=== PATIENT | female | born 1985 | race Caucasian/White ===

== ENCOUNTER 2016-03-06 13:29 | Emergency (ER) | payer OTHER ==
[2016-03-06] MEDS ORDERED: HYDROmorphone 1 mg/mL 1mL Syr IM STA (13:51)
[2016-03-06] MEDS ORDERED: HYDROmorphone 1 mg/mL 1mL Syr ONE (13:57)
--- NOTE | 2016-03-06 14:01 | ED Physician Chart ---
Chief Complaint/HPI - Patient Information Date Seen:: 03/06/16 Time Seen:: 13:40 Chief Complaint:: headaches History of Present Illness:: pt presents with intermittent, throbbing, frontal H/As with N/V x2 for the past few hours; pt describes these s/s are her typical chronic s/s of a chronic history of these typical H/As; no A/D/C, fever, chills, C/P, SOB, or Abd> pain; pt is ; pt is eating and urinating well; pt last urinated 1/2 hour GEL COATER; No LOC, decreased activity, visual or gait changes; no neck pain, vertigo, dizziness, or weakness; no paresthesias Allergies:: Allergies Allergy/AdvReac Type Severity Reaction Status Date / Time codeine Allergy Verified 02/26/16 16:12 magnesium citrate Allergy Verified 02/26/16 16:12 metoclopramide Allergy Verified 02/26/16 16:12 ondansetron Allergy Verified 02/26/16 16:12 prochlorperazine Allergy Verified 02/26/16 16:12 sumatriptan Allergy Verified 02/26/16 16:12 Historian:: Patient Review:: Nurse's Note Reviewed, Old Chart Reviewed Review of Systems - Review of Systems General/Constitutional: No fever, No chills, No weight loss, No weakness, No diaphoresis, No edema, No loss of appetite Skin: No skin lesions, No rash, No bruising Head: Headache, No headache, No light-headedness Eyes: No loss of vision, No pain, No diplopia ENT: No earache, No nasal drainage, No sore throat, No tinnitus Neck: No neck pain, No swelling, No thyromegaly, No stiffness, No mass noted Cardio Vascular: No chest pain, No palpitations, No PND, No orthopnea, No edema Pulmonary: No SOB, No cough, No sputum, No wheezing GI: Nausea, No nausea, Vomiting, No vomiting, No diarrhea, No pain, No melena, No hematochezia, No constipation, No hematemesis G/U: No dysuria, No frequency, No hematuria Musculoskeletal: No bone or joint pain, No back pain, No muscle pain Endocrine: No polyuria, No polydipsia Psychiatric: No prior psych history, No depression, No anxiety, No suicidal ideation Hematopoietic: No bruising, No lymphadenopathy Allergic/Immuno: No urticaria, No angioedema Neurological: No syncope, No focal symptoms, No weakness, No paresthesia, No headache, No seizure, No dizziness, No confusion, No vertigo Past Medical History - Past Medical History Past Medical History: Other (Vascular Cephalgia; Migraine Headaches) Family History: HTN Social History: Surgical History: other (Gastric Bypass Surgery) Psychiatricy History: None Family Medical History - Family Member Mother History Unknown: Yes Ethnicity: Living Status: Still Living Hx Family Hypertension: Yes Hx Family Stroke: Yes Hx Family Diabetes: Yes Father History Unknown: Yes Ethnicity: Non- Living Status: Hx Family Cancer: Yes Physical Exam - Physical Examination General/Constitutional: Awake, Well-developed, well-nourished, Alert, No distress, GCS 15, Non-toxic appearing, Ambulatory Head: Atraumatic Eyes: Lids, conjuctiva normal, PERRL, EOMI Skin: Nl inspection, No rash, No skin lesions, No ecchymosis, Well hydrated, No lymphadenopathy ENMT: External ears, nose nl, Nasal exam nl, Lips, teeth, gums nl Neck: Nontender, Full ROM w/o pain, No JVD, No nuchal rigidity, No bruit, No mass, No stridor Respiratory: Nl effort/Exclusion, Clear to Auscultation, No Wheeze/Rhonchi/Rales Cardio Vascular: RRR, No murmur, gallop, rubs, NL S1 S2 GI: No tenderness/rebounding/guarding, No organomegaly, No hernia, Normal BS's, Nondistended, No mass/bruits, No McBurney tenderness : No CVA tenderness Extremities: No tenderness or effusion, Full ROM, normal strength in all extremities, No edema, Normal digits & nails Neuro/Psych: Alert/oriented, DTR's symmetric, Normal sensory exam, Normal motor strength, Judgement/insight normal, Mood normal, Normal gait, No focal deficits Misc: normal gait, Normal back, No paraspinal tenderness ED Septic Shock - . Is Septic Shock (SBP<90, OR Lactate>4 mmol\L) present?: No Reassessment (Disposition) - Reassessment Reassessment Condition:: Improved - Diagnosis Diagnosis:: Vascular Cephalgia; Gastitis; Migraine Headaches; IUP; Vomiting; Hyperemesis Gravidum - Aftercare/Follow up Instructions Aftercare/Follow-Up Instructions:: Counseled pt regarding lab results/diagnosis & need follow up, Refer to Discharge Instructions, Counseled pt & family regarding lab results/diagnosis & need follow up - Patient Disposition Discharge/Transfer:: Home Condition at Disposition:: Stable, Improved (ACIs given for all above Dx; refer to OB-SECURITY PUBLIC SAFETY OFFICER/ GI/Neurologist ABDIEL; F/U with PMD in one day or prn; RTER prn if concerned)
== END 2016-03-06 14:21 | disposition home or self-care (01) ==
LOC: ER 13:29
DX: O21.0 Mild hyperemesis gravidarum (principal); O29.40 Spinal and epidural anesthesia induced headache during pregnancy, unspecified trimester; G43.909 Migraine, unspecified, not intractable, without status migrainosus; K29.70 Gastritis, unspecified, without bleeding; Z3A.00 Weeks of gestation of pregnancy not specified; Z88.6 Allergy status to analgesic agent; Z88.8 Allergy status to other drugs, medicaments and biological substances
CPT/HCPCS: J1170; J1200; Z7502

== ENCOUNTER 2016-03-25 16:42 | Emergency (ER) | payer OTHER ==
[2016-03-25] MEDS ORDERED: Sodium Chloride 0.9% 1,000 ML IV ONE (17:01)
[2016-03-25] MEDS ORDERED: Sodium Chloride 0.45% 1,000 ML IV ONE (17:10)
[2016-03-25 17:28] LABS: % BASOPHILS 0.7 % (0.0-2.0); % LYMPHOCYTES 34.6 % (20.0-50.0); % MONOCYTES 5.9 % (2.0-10.0); % NEUTROPHILS 56.8 % (40.0-80.0); HEMATOCRIT 31.8 % (35.0-45.0); HEMOGLOBIN 10.5 gm/dL (11.7-15.5); MEAN CELL VOLUME 83.7 fl (81-100); MEAN CORPUSCULAR HEMOGLOBIN 27.8 pg (27.0-31.0); MEAN CORPUSCULAR HGB CONC 33.2 pg (28.0-36.0); NEUTROPHILE ABSOLUTE 4.4 Th/cmm (1.8-8.0); PLATELET COUNT 225 Th/cmm (150-400); RED BLOOD COUNT 3.79 Mil/cmm (3.80-5.10); RED CELL DISTRIBUTION WIDTH 13.8 % (11.5-20.0)
--- NOTE | 2016-03-25 17:30 | ED Physician Chart ---
Chief Complaint/HPI - Patient Information Date Seen:: 03/25/16 Time Seen:: 17:14 Chief Complaint:: HEADACHE History of Present Illness:: THIS IS A 30 YO FEMALE WITH A LONG HISTORY OF HEADACHES AND DRUG ABUSE WHO IS 13 WEEKS . SHE IS ALSO UNDER PAIN MANAGEMENT AND CURRENTLY TAKING TYLENOL#3 FOR HER HEADACHES. SHE STATES THAT SHE HAS NAUSEA WITH VOMITING. SHE ALSO DENIES PAINFUL URINATION AND DENIES FEVER. SHE DENIES VAGINAL BLEEDING AT THIS TIME. THE PATIENT'S OLD RECORDS WERE REVIEWED STATING THAT SHE IS ALLERGIC TO CODEINE, HOWEVER SHE IS CURRENT TAKING TYLENOL #3'S. SHE STATES THAT SHE HAS HAD A FULL WORKUP FROM HER NEUROLOGIST WHO DIFFICULT TO REACH. 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 Allergies:: Allergies Allergy/AdvReac Type Severity Reaction Status Date / Time codeine Allergy Verified 02/26/16 16:12 metoclopramide Allergy Verified 02/26/16 16:12 ondansetron Allergy Verified 02/26/16 16:12 prochlorperazine Allergy Verified 02/26/16 16:12 sumatriptan Allergy Verified 02/26/16 16:12 GLUCOSE TOLERANCE TEST MEDIUM Allergy Uncoded 03/06/16 13:59 Vitals:: Vital Signs - 8 hr 03/25/16 17:10 Temp 98.2 F HR 97 RR 22 BP 130/86 O2 Sat % 100 Historian:: Patient Review:: Nurse's Note Reviewed Review of Systems - Review of Systems General/Constitutional: No fever, No chills, No weight loss, No weakness, No diaphoresis, No edema, No loss of appetite Skin: No skin lesions, No rash, No bruising Head: Headache, No light-headedness Eyes: No loss of vision, No pain, No diplopia ENT: No earache, No nasal drainage, No sore throat, No tinnitus Neck: No neck pain, No swelling, No thyromegaly, No stiffness, No mass noted Cardio Vascular: No chest pain, No palpitations, No PND, No orthopnea, No edema Pulmonary: No SOB, No cough, No sputum, No wheezing GI: No nausea, No vomiting, No diarrhea, No pain, No melena, No hematochezia, No constipation, No hematemesis G/U: No dysuria, No frequency, No hematuria Exercise Instruct: Other () Musculoskeletal: No bone or joint pain, No back pain, No muscle pain Endocrine: No polyuria, No polydipsia Psychiatric: No prior psych history, No depression, No anxiety, No suicidal ideation Hematopoietic: No bruising, No lymphadenopathy Allergic/Immuno: No urticaria, No angioedema Neurological: No syncope, No focal symptoms, No weakness, No paresthesia, No headache, No seizure, No dizziness, No confusion, No vertigo Past Medical History - Past Medical History Obtainable: Yes Past Medical History: Other (HEADACHES AND DRUG ABUSE) Family History: None, Diabetes Melitus, Cancer Social History: Non Smoker, No Alcohol, Illicit Drug Use Surgical History: other (GASTRIC BYPASS) Psychiatricy History: Other (DDRUG ABUSE) Family Medical History - Family Member Mother History Unknown: Yes Ethnicity: Living Status: Still Living Hx Family Hypertension: Yes Hx Family Stroke: Yes Hx Family Diabetes: Yes Father History Unknown: Yes Ethnicity: Non- Living Status: Hx Family Cancer: Yes Physical Exam - Physical Examination General/Constitutional: Awake, Well-developed, well-nourished, Alert, No distress, GCS 15, Non-toxic appearing, Ambulatory Head: Atraumatic Eyes: Lids, conjuctiva normal, PERRL, EOMI Skin: Nl inspection, No rash, No skin lesions, No ecchymosis, Well hydrated, No lymphadenopathy ENMT: External ears, nose nl, Nasal exam nl, Lips, teeth, gums nl Neck: Nontender, Full ROM w/o pain, No JVD, No nuchal rigidity, No bruit, No mass, No stridor Respiratory: Nl effort/Exclusion, Clear to Auscultation, No Wheeze/Rhonchi/Rales Cardio Vascular: RRR, No murmur, gallop, rubs, NL S1 S2 GI: No tenderness/rebounding/guarding, No organomegaly, No hernia, Normal BS's, Nondistended, No mass/bruits, No McBurney tenderness : No CVA tenderness Extremities: No tenderness or effusion, Full ROM, normal strength in all extremities, No edema, Normal digits & nails Other Extremities comments:: SHE HAS TRACTS ON NEEDLE INJECT ON BOTH FOREARMS. Neuro/Psych: Alert/oriented, DTR's symmetric, Normal sensory exam, Normal motor strength, Judgement/insight normal, Mood normal, Normal gait, No focal deficits Misc: normal gait, Normal back, No paraspinal tenderness Labs/Radiology/EKG Results - Lab Results Results: Laboratory Results - last 24 hr 03/25/16 03/25/16 03/25/16 17:12 17:12 17:12 WBC 8.0 D RBC 3.79 L Hgb 10.5 L Hct 31.8 L MCV 83.7 MCH 27.8 MCHC Differential 33.2 RDW 13.8 Plt Count 225 MPV 8.0 Neutrophils % 56.8 Lymphocytes % 34.6 Monocytes % 5.9 Eosinophils % 2.0 Basophils % 0.7 PT 9.5 INR 0.96 Sodium 135 L Potassium 3.6 Chloride 103 Carbon Dioxide 25.3 Anion Gap 10.3 BUN 7 Creatinine 0.5 L Est GFR ( Amer) > 60.0 Est GFR (Non-Af Amer) > 60.0 BUN/Creatinine Ratio 14.0 Glucose 82 Calcium 9.7 Total Bilirubin 0.2 L AST 13 ALT 9 Alkaline Phosphatase 50 Troponin I Total Protein 7.9 Albumin 4.1 Globulin 3.8 Albumin/Globulin Ratio 1.1 Urine Source Urine Color Urine Clarity Urine pH Ur Specific [place] Urine Protein Urine Glucose (UA) Urine Ketones Urine Blood Urine Nitrate Urine Bilirubin Urine Urobilinogen Ur Leukocyte Esterase Urine RBC Urine WBC Ur Epithelial Cells Urine Bacteria Urine Test 03/25/16 03/25/16 03/25/16 17:12 17:57 17:57 WBC RBC Hgb Hct MCV MCH MCHC Differential RDW Plt Count MPV Neutrophils % Lymphocytes % Monocytes % Eosinophils % Basophils % PT INR Sodium Potassium Chloride Carbon Dioxide Anion Gap BUN Creatinine Est GFR ( Amer) Est GFR (Non-Af Amer) BUN/Creatinine Ratio Glucose Calcium Total Bilirubin AST ALT Alkaline Phosphatase Troponin I < 0.01 L Total Protein Albumin Globulin Albumin/Globulin Ratio Urine Source CLEAN C Urine Color YELLOW Urine Clarity CLOUDY H Urine pH 7.0 Ur Specific [place] 1.020 Urine Protein 30 H Urine Glucose (UA) NEGATIVE Urine Ketones TRACE Urine Blood LARGE H Urine Nitrate NEGATIVE Urine Bilirubin SMALL H Urine Urobilinogen 2.0 Ur Leukocyte Esterase NEGATIVE Urine RBC 25-50 H Urine WBC 0-2 Ur Epithelial Cells FEW Urine Bacteria NONE SEEN Urine Test POSITIVE Assessment - Assessment General Assessment: THIS PATIENT WANT IV BENADRYL FOR VOMITING, HOWEVER SHE HAS NOT VOMITED IN THIS ER. SHE STATED THAT HER DOCTOR GIVES HER BENADRYL WHILE SHE IS AND HAS SOME AT HOME. I TOLD HER THE BENADRYL IS NOT FOR VOMITING. SHE WAS GIVEN ONE LITER OF NORMAL SALINE. SHE LOPED BEFORE I COULD TALK TO HER ABOUT HER LAB TEST WHICH REVEALED ANEMIA AND BLOOD IN HER URINE. ED Septic Shock - . Is Septic Shock (SBP<90, OR Lactate>4 mmol\L) present?: No - <6hrs of presentation: Vital Signs: Vital Signs - 8 hr 03/25/16 17:10 Temp 98.2 F HR 97 RR 22 BP 130/86 O2 Sat % 100 Reassessment (Disposition) - Reassessment Reassessment Condition:: Improved - Diagnosis Diagnosis:: HEADACHE ED Discharge Plan - Patient Disposition Admit/Discharge/Transfer: PATIENT ELOPED
[2016-03-25 17:43] LABS: INR 0.96 (0.5-1.4); PROTHROMBIN TIME (TEST) 9.5 SECONDS (9.5-11.5)
[2016-03-25 17:44] LABS: ALB/GLOB RATIO 1.1 (1.0-1.8); ALKALINE PHOSPHATASE 50 U/L (34-104); ANION GAP 10.3 (7.0-16.0); BILIRUBIN,TOTAL 0.2 mg/dL (0.3-1.0); BUN - UREA NITROGEN 7 mg/dL (7-25); CALCIUM SERUM 9.7 mg/dL (8.6-10.3); CARBON DIOXIDE 25.3 mEq/L (21.0-31.0); CHLORIDE 103 mEq/L (98-107); CREATININE - SERUM 0.5 mg/dL (0.6-1.2); GLUCOSE 82 mg/dL (70-105); POTASSIUM SERUM 3.6 mEq/L (3.5-5.1); SGOT 13 U/L (13-39); SGPT/ALT 9 U/L (7-52); SODIUM SERUM 135 mEq/L (136-145)
[2016-03-25 18:15] LABS: URINE BILIRUBIN SMALL (NEGATIVE); URINE BLOOD LARGE (NEGATIVE); URINE COLOR YELLOW; URINE GLUCOSE (UA) NEGATIVE (NEGATIVE); URINE KETONE TRACE mg/dL (NEGATIVE); URINE PROTEIN 30 mg/dL (NEGATIVE)
[2016-03-25 18:16] LABS: URINE BACTERIA NONE SEEN /hpf (NONE SEEN); URINE EPITHELIAL CELLS FEW /lpf (FEW); URINE RBC 25-50 /hpf (0-5); URINE WBC 0-2 /hpf (0-5)
[2016-03-25 19:15] LABS: AMPHETAMINE URINE NEGATIVE (NEGATIVE); BARBITURATES URINE NEGATIVE (NEGATIVE)
== END 2016-03-25 18:15 | disposition left against medical advice (07) ==
LOC: ER 16:42
DX: O26.891 Other specified pregnancy related conditions, first trimester (principal); R51 Headache; Z3A.13 13 weeks gestation of pregnancy; Z88.6 Allergy status to analgesic agent; Z88.8 Allergy status to other drugs, medicaments and biological substances
CPT/HCPCS: 99284; 84484; 36415; 80300; 84443; 86592; 85025; 85610; 81001; 81025; 80053; J1885; J7030; Z7502

== ENCOUNTER 2016-03-26 12:46 | Emergency (ER) | payer OTHER ==
[2016-03-26] MEDS ORDERED: HYDROmorphone 1 mg/mL 1mL Syr IM STA (12:49)
--- NOTE | 2016-03-26 12:49 | ED Physician Chart ---
Chief Complaint/HPI - Patient Information Date Seen:: 03/26/16 Time Seen:: 12:49 Chief Complaint:: nausea History of Present Illness:: 30-year-old female, 13 weeks , history of severe migraines with associated nausea and vomiting, complains of acute, constant, severe, nausea 2 days with associated vomiting and migraine headache. Allergies:: Allergies Allergy/AdvReac Type Severity Reaction Status Date / Time codeine Allergy Verified 02/26/16 16:12 metoclopramide Allergy Verified 02/26/16 16:12 ondansetron Allergy Verified 02/26/16 16:12 prochlorperazine Allergy Verified 02/26/16 16:12 sumatriptan Allergy Verified 02/26/16 16:12 GLUCOSE TOLERANCE TEST MEDIUM Allergy Uncoded 03/06/16 13:59 Historian:: Patient Review:: Nurse's Note Reviewed Review of Systems - Review of Systems Other: Complete system review otherwise unremarkable except as noted in HPI. Past Medical History - Past Medical History Past Medical History: Other (severe migraine headaches with cyclic vomiting) Family History: Other (migraine headaches) Social History: Non Smoker, No Alcohol, No Drug Use, Surgical History: other Psychiatricy History: None (gastric bypass) Medication: Reviewed Family Medical History - Family Member Mother History Unknown: Yes Ethnicity: Living Status: Still Living Hx Family Hypertension: Yes Hx Family Stroke: Yes Hx Family Diabetes: Yes Father History Unknown: Yes Ethnicity: Non- Living Status: Hx Family Cancer: Yes Physical Exam - Physical Examination Other:: INITIAL VITAL SIGNS: Reviewed by me GENERAL: Alert and interactive. actively vomiting. HEAD: Head is normocephalic and atraumatic EYES: EOMI. . No scleral icterus. No conjunctival injection ENT: Moist mucous membranes. NECK: Supple. No masses. Full range of motion RESPIRATORY: No tachypnea. Clear breath sounds bilaterally. No wheezing, rales, or rhonchi CV: Regular rate and rhythm. No murmurs, rubs, or gallops ABDOMEN: Soft, non-distended, non-tender. No guarding. No rebound. No masses. EXTREMITIES: No deformity. No cyanosis. No edema. SKIN: Warm and dry. No obvious rashes. NEUROLOGIC: Alert and oriented. Face is symmetric. Speech is normal. Moves all extremities equally. Motor and sensory distally intact. Labs/Radiology/EKG Results - Lab Results Results: Lab Results 03/26/16 Range/Units 13:59 Urine Source CLEAN C Urine Color YELLOW Urine Clarity SLIGHTLY CLOUDY (CLEAR) Urine pH 7.0 Ur Specific [place] 1.025 (1.005-1.030) Urine Protein NEGATIVE (NEGATIVE) mg/dL Urine Glucose (UA) NEGATIVE (NEGATIVE) mg/dL Urine Ketones NEGATIVE (NEGATIVE) mg/dL Urine Blood MODERATE H (NEGATIVE) Urine Nitrate NEGATIVE (NEGATIVE) Urine Bilirubin NEGATIVE (NEGATIVE) Urine Urobilinogen 2.0 (0.2 - 1.0) E.U./dL Ur Leukocyte Esterase NEGATIVE (NEGATIVE) Urine RBC 0-2 (0-5) /hpf Urine WBC 2-5 (0-5) /hpf Ur Epithelial Cells FEW (FEW) /lpf Urine Bacteria 1+ H (NONE SEEN) /hpf - Radiology Results Results: Ultrasound OB prelim report per radiology Small subchorionic hemorrhage seen Intrauterine noted to be 14 weeks 6 days by ultrasound heart tone 153 bpm ED Septic Shock - . Is Septic Shock (SBP<90, OR Lactate>4 mmol\L) present?: No Reassessment (Disposition) - Reassessment Reassessment:: This is a patient has visited this emergency room multiple times for the same problem. She has cyclic migraine headaches with severe nausea and vomiting. She is many allergies. Her medications that she requests aren't Dilaudid and Benadryl. She received both of these medications intramuscularly. Symptoms greatly improved. We did explain the risks of using these medications while . She has been very educated by myself and her OB and both her OB and her neurologist recommend that she continue taking these medications. At the request of the patient we did administer these medications. Her symptoms improved. Recommended follow-up with OB and PCP within one to 2 days. Gave return to ER precautions. Patient understands and agrees the plan. Reassessment Condition:: Improved - Diagnosis Diagnosis:: Intractable migraine headache with aura and nausea and vomiting Asymptomatic bacteremia and - Aftercare/Follow up Instructions Aftercare/Follow-Up Instructions:: Counseled pt regarding lab results/diagnosis & need follow up, Refer to Discharge Instructions Medication Prescribed:: Macrobid - Patient Disposition Discharge/Transfer:: Home Time:: 15:23 Condition at Disposition:: Improved ED Discharge Plan - Patient Disposition Admit/Discharge/Transfer: PT DISCHARGED HOME Condition at Disposition: Improved Instructions: Asymptomatic Bacteriuria, Female, Nausea and Vomiting, Easy-to- Read
[2016-03-26] MEDS ORDERED: HYDROmorphone 2 mg/mL 1mL Vial ONE (12:57)
[2016-03-26] MEDS ORDERED: Sodium Chloride 0.9% 1,000 ML IV ONE (14:49)
[2016-03-26 14:50] LABS: URINE BILIRUBIN NEGATIVE (NEGATIVE); URINE BLOOD MODERATE (NEGATIVE); URINE COLOR YELLOW; URINE GLUCOSE (UA) NEGATIVE (NEGATIVE); URINE KETONE NEGATIVE (NEGATIVE)
[2016-03-26 14:51] LABS: URINE BACTERIA 1+ /hpf (NONE SEEN); URINE EPITHELIAL CELLS FEW /lpf (FEW); URINE PROTEIN NEGATIVE (NEGATIVE); URINE RBC 0-2 /hpf (0-5)
--- NOTE | 2016-03-27 09:34 | Diagnostic Imaging Report ---
History: First trimester OB ultrasound with pain Technique: 2-D real-time ultrasound was performed with sagittal and axial images cemented for evaluation Findings: Intrauterine gestational sac containing a pole. Measurement of parts shielding average gestational age of 14 weeks. heart rate is 153 bpm. The placenta is anterior fundal in location. There is a subchorionic hemorrhage. Amniotic fluid volume is normal at 8.8 cm. The cervical length is 3.7 cm. Impression: 14 week living IUP. Anterior fundal placenta with signs of subchorionic hemorrhage measuring 2 x 0.7 cm. Recommend follow-up.
== END 2016-03-26 15:40 | disposition home or self-care (01) ==
LOC: ER 12:46
DX: O26.892 Other specified pregnancy related conditions, second trimester (principal); R11.2 Nausea with vomiting, unspecified; R78.81 Bacteremia; G43.909 Migraine, unspecified, not intractable, without status migrainosus; Z3A.14 14 weeks gestation of pregnancy; Z88.6 Allergy status to analgesic agent; Z88.8 Allergy status to other drugs, medicaments and biological substances
CPT/HCPCS: 99285; 96372 ×2; 96374; 96375; 76802; 81001; J2405; J1170; J1200; J7030

== ENCOUNTER 2016-04-03 15:22 | Emergency (ER) | payer OTHER ==
--- NOTE | 2016-04-03 15:59 | ED Physician Chart ---
Chief Complaint/HPI - Patient Information Date Seen:: 04/03/16 Time Seen:: 15:35 Chief Complaint:: Recurrent nausea/vomiting since this morning. History of Present Illness:: Pt c/o recurrent nausea/vomiting since early this morning. Pt now feels better. Pt has had multiple ER visits for similar condition and was last seen by Dr. Lyn on 03/26/16. Vomitus consists of gastric content. No hematemesis. Last BM yesterday, normal in color/consistency. No hematochezia or melena. Pt has chronic pain syndrome related to migraine. Pt has pending appointment with [facility]. Pt is currently 15-week . Pt has pending appointment with Dr. Martínez at [facility] tomorrow as well. No fever or lightheadedness. Pt states that intramuscular injection of Benadryl has been helpful for her nausea/vomiting symptoms in the past. Allergies:: Allergies Allergy/AdvReac Type Severity Reaction Status Date / Time codeine Allergy Verified 02/26/16 16:12 metoclopramide Allergy Verified 02/26/16 16:12 NSAIDS (Non-Steroidal Allergy Verified 04/03/16 15:46 Anti-Inflamma ondansetron Allergy Verified 02/26/16 16:12 prochlorperazine Allergy Verified 02/26/16 16:12 sumatriptan Allergy Verified 02/26/16 16:12 GLUCOSE TOLERANCE TEST MEDIUM Allergy Uncoded 03/06/16 13:59 Vitals:: see Nurse Note. Historian:: Patient Family MD/PCP:: Dr. Alvarez LMP:: 12/10/15 Review:: Nurse's Note Reviewed Review of Systems - Review of Systems General/Constitutional: No fever, No chills, No weight loss, No weakness, No diaphoresis, No edema, No loss of appetite Skin: No skin lesions, No rash, No bruising Head: Headache (Recurrent migraine DELA CRUZ, average once weekly. Pt is followed by her neurologist Dr. Brand.), No light-headedness Eyes: No loss of vision, No pain, No diplopia ENT: No earache, No nasal drainage, No sore throat, No tinnitus Neck: No neck pain, No swelling, No thyromegaly, No stiffness, No mass noted Cardio Vascular: No chest pain, No palpitations, No PND, No orthopnea, No edema Pulmonary: No SOB, No cough, No sputum, No wheezing GI: Nausea, Vomiting, No diarrhea, No pain, No melena, No hematochezia, No constipation, No hematemesis G/U: No dysuria, No frequency, No hematuria Inclusion Internship: No vaginal discharge, No abnormal vaginal bleed, No contraction Musculoskeletal: No bone or joint pain, No back pain, No muscle pain Endocrine: No polyuria, No polydipsia Psychiatric: No prior psych history Hematopoietic: No bruising, No lymphadenopathy Allergic/Immuno: No urticaria, No angioedema Neurological: No syncope, No focal symptoms, No weakness, No paresthesia, No headache, No seizure, No dizziness, No confusion, No vertigo Past Medical History - Past Medical History Past Medical History: Seizures, Other (h/o migraine DELA CRUZ) Family History: Diabetes Melitus (in mother), Cancer ( in father.) Social History: Non Smoker, No Alcohol, No Drug Use Surgical History: (), other (Gastric bypass in .) Psychiatricy History: None Medication: Reviewed Family Medical History - Family Member Mother History Unknown: Yes Ethnicity: Living Status: Still Living Hx Family Hypertension: Yes Hx Family Stroke: Yes Hx Family Diabetes: Yes Father History Unknown: Yes Ethnicity: Non- Living Status: Hx Family Cancer: Yes Physical Exam - Physical Examination General/Constitutional: Awake, Well-developed, well-nourished, Alert, No distress, GCS 15, Non-toxic appearing, Ambulatory Other Gen/Cons comments:: Breathes comfortably, speaks clearly, ambulates without difficulty, and interacts normally. Head: Atraumatic Eyes: Lids, conjuctiva normal, PERRL, EOMI Skin: Nl inspection, No rash, No skin lesions, No ecchymosis, Well hydrated, No lymphadenopathy ENMT: External ears, nose nl, Nasal exam nl, Oropharynx nl Other ENMT comments:: Mucous membrane is moist. Neck: Nontender, Full ROM w/o pain, No nuchal rigidity, No mass, No stridor Respiratory: Nl effort/Exclusion, Clear to Auscultation, No Wheeze/Rhonchi/Rales Cardio Vascular: RRR, No murmur, gallop, rubs, NL S1 S2 GI: No tenderness/rebounding/guarding, No organomegaly, No hernia, Normal BS's, Nondistended, No mass/bruits, No McBurney tenderness Other GI comments:: obese but soft. Extremities: No tenderness or effusion, Full ROM, normal strength in all extremities, No edema, Normal digits & nails Neuro/Psych: Alert/oriented (oriented x 3), Mood normal, Normal gait, No focal deficits ED Septic Shock - . Is Septic Shock (SBP<90, OR Lactate>4 mmol\L) present?: No Reassessment (Disposition) - Reassessment Reassessment:: 1700 Pt feels much better. No recurrent N/V. Pt has been ambulatory without any bodily discomfort. Pt requests to go home now and does not want further observation/management in hospital. Aftercare instructions given. Her sister Malu will drive her home. Reassessment Condition:: Improved - Diagnosis Diagnosis:: Recurrent nausea/vomiting by hx, related to cyclic nausea/vomiting syndrome vs gestation, stable and currently asymptomatic. - Aftercare/Follow up Instructions Aftercare/Follow-Up Instructions:: Refer to Discharge Instructions Notes:: Continue present care. Push oral fluid. Drowsiness precautions given with the use of Benadryl. N/V/D instructions given. F/U with PCP Dr. Alvarez in one day for recheck. Pt also has appointments with [facility] and Dr[facility] Mart[facility] at [facility] tomorrow. Return to ER immediately if condition worsens or if any further questions/problems. Medication Prescribed:: None - Patient Disposition Discharge/Transfer:: Home Time:: 17:05 Condition at Disposition:: Stable, Improved
== END 2016-04-03 17:10 | disposition home or self-care (01) ==
LOC: ER 15:22
DX: R11.2 Nausea with vomiting, unspecified (principal); G43.909 Migraine, unspecified, not intractable, without status migrainosus; Z88.6 Allergy status to analgesic agent; Z88.8 Allergy status to other drugs, medicaments and biological substances
CPT/HCPCS: J1200; Z7502

== ENCOUNTER 2016-04-08 17:40 | Emergency (ER) | payer SELFPAY | END 2016-04-08 17:57 | disposition left against medical advice (07) | LOC: ER 17:40 | DX: Z53.21 Procedure and treatment not carried out due to patient leaving prior to being seen by health care provider (principal) ==

== ENCOUNTER 2016-05-18 13:46 | Emergency (ER) | payer OTHER ==
[2016-05-18] MEDS ORDERED: HYDROmorphone 1 mg/mL 1mL Syr IM STA (14:10)
--- NOTE | 2016-05-18 14:16 | ED Physician Chart ---
Chief Complaint/HPI - Patient Information Date Seen:: 05/18/16 Time Seen:: 14:11 Chief Complaint:: dela cruz and nausea History of Present Illness:: pt well known here for similar visits. presents c/o DELA CRUZ frontal L>R (tho it started on rt before) x 3 days. she had run out of her stadol 3-4 days ago from her OB. she claims many many allergies. currently 22 wks gravid w prior nausea but otw nrml course. pt is txd for HAs by her OB and has been advised to cont on her pain med as its safer than other options. we spoke of the fact that this med is not good for the baby and could be born into addiction. she is requesting a benadyl and dilaudid injection. I have explained to pt I will help her out but that I have serious reservations and this is not the path of tx I would advise. pt says is aware of risks. no pelvic cramping. no vag dc. no vag bleed. no abd/back pains. Allergies:: Allergies Allergy/AdvReac Type Severity Reaction Status Date / Time codeine Allergy Verified 05/18/16 13:57 metoclopramide Allergy Verified 05/18/16 13:57 NSAIDS (Non-Steroidal Allergy Verified 05/18/16 13:57 Anti-Inflamma ondansetron Allergy Verified 05/18/16 13:57 prochlorperazine Allergy Verified 05/18/16 13:57 sumatriptan Allergy Verified 05/18/16 13:57 GLUCOSE TOLERANCE TEST MEDIUM Allergy Uncoded 03/06/16 13:59 Vitals:: Vital Signs - 8 hr 05/18/16 13:46 Temp 97.0 F HR 91 RR 16 BP 110/75 O2 Sat % 99 Historian:: Patient Review of Systems - Review of Systems General/Constitutional: No fever, No chills, No weight loss, No weakness, No diaphoresis, No edema, No loss of appetite Skin: No skin lesions, No rash, No bruising Head: Headache, No light-headedness Eyes: No loss of vision, No pain, No diplopia ENT: No earache, No nasal drainage, No sore throat, No tinnitus Neck: No neck pain, No swelling, No thyromegaly, No stiffness, No mass noted Cardio Vascular: No chest pain, No palpitations, No PND, No orthopnea, No edema Pulmonary: No SOB, No cough, No sputum, No wheezing GI: Nausea, No vomiting, No diarrhea, No pain, No melena, No hematochezia, No constipation, No hematemesis G/U: No dysuria, No frequency, No hematuria Musculoskeletal: No bone or joint pain, No back pain, No muscle pain Endocrine: No polyuria, No polydipsia Psychiatric: No prior psych history, No depression, No anxiety, No suicidal ideation Hematopoietic: No bruising, No lymphadenopathy Allergic/Immuno: No urticaria, No angioedema Neurological: No syncope, No focal symptoms, No weakness, No paresthesia, No headache, No seizure, No dizziness, No confusion, No vertigo Past Medical History - Past Medical History Past Medical History: Other (, Migraine HAs) Surgical History: other (g bypass 2014) Medication: Reviewed Family Medical History - Family Member Mother History Unknown: Yes Ethnicity: Living Status: Still Living Hx Family Hypertension: Yes Hx Family Stroke: Yes Hx Family Diabetes: Yes Other Medical History: migraines Father History Unknown: Yes Ethnicity: Non- Living Status: Hx Family Cancer: Yes Physical Exam - Physical Examination General/Constitutional: Awake, Well-developed, well-nourished, Alert, No distress, GCS 15, Non-toxic appearing, Ambulatory Head: Atraumatic Eyes: Lids, conjuctiva normal, PERRL, EOMI Skin: Nl inspection, No rash, No skin lesions, No ecchymosis, Well hydrated, No lymphadenopathy ENMT: External ears, nose nl, Nasal exam nl, Lips, teeth, gums nl Neck: Nontender, Full ROM w/o pain, No JVD, No nuchal rigidity, No bruit, No mass, No stridor Respiratory: Nl effort/Exclusion, Clear to Auscultation, No Wheeze/Rhonchi/Rales Cardio Vascular: RRR, No murmur, gallop, rubs, NL S1 S2 GI: No tenderness/rebounding/guarding, No organomegaly, No hernia, Normal BS's, Nondistended, No mass/bruits, No McBurney tenderness : No CVA tenderness Extremities: No tenderness or effusion, Full ROM, normal strength in all extremities, No edema, Normal digits & nails Neuro/Psych: Alert/oriented, DTR's symmetric, Normal sensory exam, Normal motor strength, Judgement/insight normal, Mood normal, Normal gait, No focal deficits Misc: normal gait, Normal back, No paraspinal tenderness ED Septic Shock - . Is Septic Shock (SBP<90, OR Lactate>4 mmol\L) present?: No - <6hrs of presentation: Vital Signs: Vital Signs - 8 hr 05/18/16 13:46 Temp 97.0 F HR 91 RR 16 BP 110/75 O2 Sat % 99 Reassessment (Disposition) - Reassessment Reassessment:: pt ordered im benadryl for nausea/pain. staff were uncomfortable giving im dilaudid and pharmacy objected. pt was dc wo dilaudid. is to follow up w her ob and or pain mgt no vomiting witnessed in ED> Reassessment Condition:: Improved - Diagnosis Diagnosis:: 1 chronic migraine headaches 2 cyclical nausea associated w 3 chronic pain 4 gravid - Patient Disposition Discharge/Transfer:: Home Condition at Disposition:: Improved ED Discharge Plan - Patient Disposition Admit/Discharge/Transfer: PT DISCHARGED HOME Condition at Disposition: Stable Instructions: Nausea, Adult, Migraine Headache Additional Instructions: Please follow up with OB-INTERNAL CONTROLS ANALYST in 1-2 days.
== END 2016-05-18 15:13 | disposition home or self-care (01) ==
LOC: ER 13:46
DX: O29.42 Spinal and epidural anesthesia induced headache during pregnancy, second trimester (principal); O26.892 Other specified pregnancy related conditions, second trimester; G43.909 Migraine, unspecified, not intractable, without status migrainosus; R11.0 Nausea; G89.29 Other chronic pain; Z3A.22 22 weeks gestation of pregnancy; Z88.6 Allergy status to analgesic agent; Z88.8 Allergy status to other drugs, medicaments and biological substances
CPT/HCPCS: J1200; Z7502

== ENCOUNTER 2016-09-26 10:04 | Emergency (ER) | payer OTHER ==
--- NOTE | 2016-09-26 10:45 | ED Physician Chart ---
Chief Complaint/HPI - Patient Information Date Seen:: 09/26/16 Time Seen:: 10:30 Chief Complaint:: HEADACHES History of Present Illness:: THIS IS QA 31 YO FEMALE WITH A LONG HISTORY OF TAKING DILAUDID FOR MIGRAINE HEADACHES AND HAS AN ALLERGY TO OPIODS. SHE HAD A TWO WEEKS AGO AND WAS GIVEN A SUPPLY OF MEDICATIONS TO TAKE INCLUDING DILAUDID. SHE IS REQUESTING MORE DILAUDID FOR HER HEADACHES. SHE DENIES ANY FEVER, VOMITING OR DIARRHEA AT THIS TIME. SHE STATES THAT THE PAIN IS 10/10 BUT APPEARS TO BE COMFORTABLE. SHE CURRENTLY NOT BREAST FEEDING HER BABY. Allergies:: Allergies Allergy/AdvReac Type Severity Reaction Status Date / Time acetaminophen [From Fioricet] Allergy Verified 09/26/16 10:17 butalbital [From Fioricet] Allergy Verified 09/26/16 10:17 caffeine [From Fioricet] Allergy Verified 09/26/16 10:17 codeine Allergy Verified 05/18/16 13:57 metoclopramide Allergy Verified 05/18/16 13:57 NSAIDS (Non-Steroidal Allergy Verified 05/18/16 13:57 Anti-Inflamma ondansetron Allergy Verified 05/18/16 13:57 prochlorperazine Allergy Verified 05/18/16 13:57 Rho(D) immune globulin Allergy Verified 09/26/16 10:16 [From RhoGam] sumatriptan Allergy Verified 05/18/16 13:57 GLUCOSE TOLERANCE TEST MEDIUM Allergy Uncoded 03/06/16 13:59 Vitals:: Vital Signs - 8 hr 09/26/16 10:26 Temp 98.3 F HR 86 RR 17 BP 127/69 O2 Sat % 100 Historian:: Patient, Medical Records Review:: Nurse's Note Reviewed, Old Chart Reviewed Review of Systems - Review of Systems General/Constitutional: No fever, No chills, No weight loss, No weakness, No diaphoresis, No edema, No loss of appetite Skin: No skin lesions, No rash, No bruising Head: Headache, No light-headedness Eyes: No loss of vision, No pain, No diplopia ENT: No earache, No nasal drainage, No sore throat, No tinnitus Neck: No neck pain, No swelling, No thyromegaly, No stiffness, No mass noted Cardio Vascular: No chest pain, No palpitations, No PND, No orthopnea, No edema Pulmonary: No SOB, No cough, No sputum, No wheezing GI: No nausea, No vomiting, No diarrhea, No pain, No melena, No hematochezia, No constipation, No hematemesis G/U: No dysuria, No frequency, No hematuria Musculoskeletal: No bone or joint pain, No back pain, No muscle pain Endocrine: No polyuria, No polydipsia Psychiatric: No prior psych history, No depression, No anxiety, No suicidal ideation Hematopoietic: No bruising, No lymphadenopathy Allergic/Immuno: No urticaria, No angioedema Neurological: No syncope, No focal symptoms, No weakness, No paresthesia, No headache, No seizure, No dizziness, No confusion, No vertigo Past Medical History - Past Medical History Obtainable: Yes Past Medical History: Other (MIGRAIN HEADACHES) Family History: None Social History: Non Smoker, No Alcohol, Illicit Drug Use, Surgical History: , other (GASTRIC BYPASS, ) Psychiatricy History: None Medication: Reviewed Family Medical History - Family Member Mother History Unknown: Yes Ethnicity: Living Status: Still Living Hx Family Hypertension: Yes Hx Family Stroke: Yes Hx Family Diabetes: Yes Father History Unknown: Yes Ethnicity: Non- Living Status: Hx Family Cancer: Yes Physical Exam - Physical Examination General/Constitutional: Awake, Well-developed, well-nourished, Alert, No distress, GCS 15, Non-toxic appearing, Ambulatory Head: Atraumatic Eyes: Lids, conjuctiva normal, PERRL, EOMI Skin: Nl inspection, No rash, No skin lesions, No ecchymosis, Well hydrated, No lymphadenopathy ENMT: External ears, nose nl, Nasal exam nl, Lips, teeth, gums nl Neck: Nontender, Full ROM w/o pain, No JVD, No nuchal rigidity, No bruit, No mass, No stridor Respiratory: Nl effort/Exclusion, Clear to Auscultation, No Wheeze/Rhonchi/Rales Cardio Vascular: RRR, No murmur, gallop, rubs, NL S1 S2 GI: No tenderness/rebounding/guarding, No organomegaly, No hernia, Normal BS's, Nondistended, No mass/bruits, No McBurney tenderness : No CVA tenderness Extremities: No tenderness or effusion, Full ROM, normal strength in all extremities, No edema, Normal digits & nails Neuro/Psych: Alert/oriented, DTR's symmetric, Normal sensory exam, Normal motor strength, Judgement/insight normal, Mood normal, Normal gait, No focal deficits Misc: normal gait, Normal back, No paraspinal tenderness Assessment - Assessment General Assessment: HEADACHES DILAUDID ADDICTION ED Septic Shock - . Is Septic Shock (SBP<90, OR Lactate>4 mmol\L) present?: No - <6hrs of presentation: Vital Signs: Vital Signs - 8 hr 09/26/16 10:26 Temp 98.3 F HR 86 RR 17 BP 127/69 O2 Sat % 100 Reassessment (Disposition) - Reassessment Reassessment Condition:: Improved - Diagnosis Diagnosis:: MIGRAIN HEADACHES DILAUDID ADDICTION - Aftercare/Follow up Instructions Aftercare/Follow-Up Instructions:: Counseled pt regarding lab results/diagnosis & need follow up, Refer to Discharge Instructions, Counseled pt & family regarding lab results/diagnosis & need follow up - Patient Disposition Discharge/Transfer:: Home Condition at Disposition:: Stable, Improved ED Discharge Plan - Patient Disposition Admit/Discharge/Transfer: PT DISCHARGED HOME Condition at Disposition: Improved Prescriptions: Gabapentin 600 mg PO QID PRN #24 tablet PRN Reason: Pain (Mild) Prednisone 10 mg PO BID #10 [id number] Instructions: Migraine Headache, [id number] Accepting Physician: , Primary [Other] - 1-3 Days
== END 2016-09-26 10:45 | disposition home or self-care (01) ==
LOC: ER 10:04
DX: G43.909 Migraine, unspecified, not intractable, without status migrainosus (principal); F11.20 Opioid dependence, uncomplicated; Z88.5 Allergy status to narcotic agent; Z88.8 Allergy status to other drugs, medicaments and biological substances
CPT/HCPCS: 99283; 96372; J1885; Z7502

== ENCOUNTER 2016-10-08 20:17 | Emergency (ER) | payer OTHER | END 2016-10-08 20:36 | disposition left against medical advice (07) | LOC: ER 20:17 | DX: R10.9 Unspecified abdominal pain (principal) ==

== ENCOUNTER 2017-01-15 12:49 | Emergency (ER) | payer OTHER ==
--- NOTE | 2017-01-15 13:34 | ED Physician Chart ---
ED Chief Complaint/HPI - Patient Information Date Seen:: 01/15/17 Time Seen:: 13:06 Chief Complaint:: Headache since this morning. History of Present Illness:: Pt was brought in by private auto with her for the above reason. Pt has h/o migraine DELA CRUZ. Pt c/o recurrent R sided throbbing headache like her prior migraine attack. No fever. Pt has had nausea. No vomiting. No mentation change. No weakness or numbness. No ataxia. Pt is here primarily for pain control. Pt has h/o chronic pain syndrome related to migraine and has been followed at [facility] with Dr. Steinberg. Pt states that she has been out of her pain medication Dilaudid that she normally responds well for her migraine. Pt has multiple allergies. Pt states that she responds well to Benadryl that helps her nausea. Allergies:: Allergies Allergy/AdvReac Type Severity Reaction Status Date / Time acetaminophen [From Fioricet] Allergy Verified 10/08/16 20:33 butalbital [From Fioricet] Allergy Verified 10/08/16 20:33 caffeine [From Fioricet] Allergy Verified 10/08/16 20:33 codeine Allergy Verified 10/08/16 20:33 metoclopramide Allergy Verified 10/08/16 20:33 NSAIDS (Non-Steroidal Allergy Verified 10/08/16 20:33 Anti-Inflamma ondansetron Allergy Verified 10/08/16 20:33 prochlorperazine Allergy Verified 10/08/16 20:33 Rho(D) immune globulin Allergy Verified 10/08/16 20:33 [From RhoGam] sumatriptan Allergy Verified 10/08/16 20:33 GLUCOSE TOLERANCE TEST MEDIUM Allergy Uncoded 03/06/16 13:59 Vitals:: see Nurse Note. Historian:: Patient Family MD/PCP:: Dr. Alvarez. LMP:: 12/11/16 Review:: Nurse's Note Reviewed ED Review of Systems - Review of Systems General/Constitutional: No fever, No chills, No weight loss, No weakness, No edema, No loss of appetite Skin: No skin lesions, No rash Head: No light-headedness Eyes: No loss of vision, No pain, No diplopia ENT: No earache, No nasal drainage, No sore throat Neck: No neck pain, No swelling, No stiffness, No mass noted Cardio Vascular: No chest pain, No palpitations, No edema Pulmonary: No SOB, No cough, No wheezing GI: Nausea, No vomiting, No pain G/U: No dysuria, No frequency, No hematuria Taper/Finisher: No vaginal discharge, No abnormal vaginal bleed Musculoskeletal: No bone or joint pain Endocrine: No polyuria, No polydipsia Psychiatric: Prior psych history, No depression, Anxiety, No suicidal ideation, No homicidal ideation, No auditory hallucination, No visual hallucination Hematopoietic: No bruising, No lymphadenopathy Allergic/Immuno: No urticaria, No angioedema Neurological: No syncope, No focal symptoms, No weakness, No paresthesia, Headache, No seizure, No dizziness, No confusion, No vertigo ED Past Medical History - Past Medical History Past Medical History: Other (h/o migraine.) Family History: Diabetes Melitus (mother and sister.), Cancer (father.) Social History: Non Smoker, No Alcohol, No Drug Use, , Other (lives with her and children.) Employment:: unemployed. Surgical History: Appendectomy (09/2016), (x 2 with last one 08/2016), other (Tubal ligation 08/2016. Gastric bypass 2014.) Psychiatricy History: Other (h/o anxiety disorder.) Medication: Reviewed Family Medical History - Family Member Mother History Unknown: Yes Ethnicity: Living Status: Still Living Hx Family Hypertension: Yes Hx Family Stroke: Yes Hx Family Diabetes: Yes Father History Unknown: Yes Ethnicity: Non- Living Status: Hx Family Cancer: Yes ED Physical Exam - Physical Examination General/Constitutional: Awake, Well-developed, well-nourished, Alert, No distress (except c/o severe headache.), GCS 15, Non-toxic appearing, Ambulatory Other Gen/Cons comments:: Breathes comfortably, speaks clearly, interacts normally, and ambulates without difficulty. Head: Atraumatic Eyes: Lids, conjuctiva normal, PERRL, EOMI Other Eyes comments:: Fundi: flat disks. Skin: Nl inspection, No rash, No skin lesions, No ecchymosis, Well hydrated, No lymphadenopathy ENMT: External ears, nose nl, TM canals nl, Nasal exam nl, Oropharynx nl Neck: Nontender, Full ROM w/o pain, No nuchal rigidity, No mass, No stridor Respiratory: Nl effort/Exclusion, Clear to Auscultation, No Wheeze/Rhonchi/Rales Cardio Vascular: RRR, No murmur, gallop, rubs GI: No tenderness/rebounding/guarding, No organomegaly, Normal BS's, Nondistended, No mass/bruits Other GI comments:: Abdomen is soft. Extremities: No tenderness or effusion, No edema Neuro/Psych: Alert/oriented (oriented x 3), DTR's symmetric, Normal sensory exam , Normal motor strength, Mood normal, Normal gait, No focal deficits Other Neuro/Psych comments:: CN II to XII are grossly intact. Cerebellar exam (F to N, ASHISH): normal. ED Septic Shock - . Is Septic Shock (SBP<90, OR Lactate>4 mmol\L) present?: No ED Reassessment (Disposition) - Reassessment Reassessment:: 1530 Pt now is comfortable and has no new complaint. Pt requests to go home now. Aftercare instructions have been given. Her will drive pt home. Reassessment Condition:: Improved - Diagnosis Diagnosis:: Migraine headache by hx, stable and improved. Chronic pain syndrome. - Aftercare/Follow up Instructions Aftercare/Follow-Up Instructions:: Refer to Discharge Instructions Notes:: Bedrest for today. Rest in dimly lit quiet room. Avoid caffeine, fermented foodstuffs such as cheese, etc. Drowsiness precautions given with the use of Dilaudid and Benadryl. Headache instructions given. F/U with PCP Dr. Alvarez as well as Pain Clinic in one day for recheck. Return to ER immediately if condition worsens or if any further questions/problems. Medication Prescribed:: None - Patient Disposition Discharge/Transfer:: Home Time:: 15:40 Condition at Disposition:: Stable, Improved ED Discharge Plan - Patient Disposition Admit/Discharge/Transfer: PT DISCHARGED HOME Instructions: Migraine Headache, [id number]
[2017-01-15] MEDS ORDERED: HYDROmorphone 1 mg/mL 1mL Syr ONE (14:34)
[2017-01-15] MEDS: HYDROmorphone 1 mg/mL 1mL Syr IVP STA (14:46)
== END 2017-01-15 15:50 | disposition home or self-care (01) ==
LOC: ER 12:49
DX: G43.909 Migraine, unspecified, not intractable, without status migrainosus (principal); G89.4 Chronic pain syndrome
CPT/HCPCS: 96374; 96375; J1170; J1200; Z7502